=== PATIENT | female | born 1955 | race Caucasian/White ===

== ENCOUNTER → 2021-04-29 | Outpatient (CLI) | payer BC | LOC: EXRD 04-23 09:00 | DX: R10.11 Right upper quadrant pain (principal); R10.12 Left upper quadrant pain | CPT/HCPCS: 76700 ==

== ENCOUNTER → 2021-08-29 | Outpatient (CLI) | payer BC | LOC: EXRD 11:15 | DX: R06.02 Shortness of breath (principal); M25.551 Pain in right hip | CPT/HCPCS: 71046; 73502 ==

== ENCOUNTER → 2021-09-12 | Outpatient (CLI) | payer BC | LOC: KOH-I 12:32 | DX: M54.50 Low back pain, unspecified (principal); M25.562 Pain in left knee; M47.816 Spondylosis without myelopathy or radiculopathy, lumbar region | CPT/HCPCS: 72110; 73564 ==

== ENCOUNTER → 2021-10-16 | Outpatient (CLI) | payer MEDICARE | LOC: HEART 5 11:57 | DX: R06.02 Shortness of breath (principal) | CPT/HCPCS: 94010 ==

== ENCOUNTER → 2021-10-21 | Outpatient (CLI) | payer MEDICARE | LOC: US 13:24 | DX: E03.9 Hypothyroidism, unspecified (principal); E07.9 Disorder of thyroid, unspecified | CPT/HCPCS: 76536 ==

== ENCOUNTER → 2021-10-25 | Outpatient (CLI) | payer MEDICARE | LOC: MAMO 10:30 | DX: Z12.31 Encounter for screening mammogram for malignant neoplasm of breast (principal) | CPT/HCPCS: 77063; 77067 ==

== ENCOUNTER → 2021-11-22 | Outpatient (CLI) | payer MEDICARE | LOC: RAD 11-11 08:30 | DX: R13.10 Dysphagia, unspecified (principal); R09.89 Other specified symptoms and signs involving the circulatory and respiratory systems | CPT/HCPCS: 74230; 92611-GN ==

== ENCOUNTER → 2021-11-26 | Outpatient (CLI) | payer MEDICARE | LOC: HEART 5 14:00 | DX: R00.2 Palpitations (principal) ==

== ENCOUNTER → 2021-12-10 | Outpatient (CLI) | payer MEDICARE | LOC: MAMO 12:49 → US 13:30 | DX: R92.8 Other abnormal and inconclusive findings on diagnostic imaging of breast (principal) | CPT/HCPCS: 77066; G0279 ==

== ENCOUNTER → 2021-12-19 | Outpatient (CLI) | payer MEDICARE | LOC: EXRD 09:59 | DX: Z13.820 Encounter for screening for osteoporosis (principal); Z78.0 Asymptomatic menopausal state; M81.0 Age-related osteoporosis without current pathological fracture | CPT/HCPCS: 77080 ==

== ENCOUNTER → 2022-02-20 | Outpatient (CLI) | payer MEDICARE | LOC: CT 13:57 | DX: R10.2 Pelvic and perineal pain (principal) | CPT/HCPCS: Q9967 ==

== ENCOUNTER → 2022-05-09 | Day surgery (SDC) | payer MEDICARE ==
[~2022-05-09] MED LIST: ALENDRONATE SOD70 MG PO; CRESTOR40 MG PO; ESTRADIOL1 EACH TD; FLONASE 0.05% N16 GM; LEVOTHYROXINE75 MCG PO; METOPROLOL SUCC25 MG PO; METROCREAM45 GM TP; PROBIOTIC PO; PROGESTERONE100 MG PO; PROTONIX 40 MG40 M1 PO; VALTREX1000 MG PO
== END | disposition home or self-care (01) ==
LOC: OR 05:53
PROVIDERS: Surgery
PROC: 0DJD8ZZ Inspection of Lower Intestinal Tract, Via Natural or Artificial Opening Endoscopic (ICD-10-PCS; principal; 2022-05-09 07:30)
DX: Z12.11 Encounter for screening for malignant neoplasm of colon (principal); K21.9 Gastro-esophageal reflux disease without esophagitis; K57.30 Diverticulosis of large intestine without perforation or abscess without bleeding; I10 Essential (primary) hypertension; E03.9 Hypothyroidism, unspecified; E78.00 Pure hypercholesterolemia, unspecified; M81.0 Age-related osteoporosis without current pathological fracture; Z79.890 Hormone replacement therapy; Z79.899 Other long term (current) drug therapy; Z88.1 Allergy status to other antibiotic agents; Z88.5 Allergy status to narcotic agent
CPT/HCPCS: J2704